=== PATIENT | female | born 1990 | race African-American/Black ===

== ENCOUNTER 2017-11-10 07:12 | Emergency (ER) | payer SELFPAY ==
[2017-11-10 07:40] LABS: Bilirubin Negative (Negative); Blood, Urine Negative (Negative); Clarity CLOUDY (Clear); Glucose, Urine (Dipstick) Negative (Negative); Leukocyte Negative (Negative); Nitrite Negative (Negative); Protein, Urine (Dipstick) Trace mg/dL (Neg-Trace); Specific Gravity, Urine 1.023 (1.002-1.036); Urobilinogen 0.2 mg/dL (0.2-1.0); pH, Urine 7.5 (5.0-9.0)
[2017-11-10 07:44] LABS: Pregnancy Test - Urine (BHCG) Negative (Negative); Pregu Control Background? CLEAR/WHITE (CLR/WHITE); Pregu Control Bar Appear? YES (CONTROL BAR); Specific Gravity 1.023 (1.002-1.036)
[2017-11-10 08:30] LABS: Hemoglobin 12.4 g/dL (12.0-16.0); Mean Corpuscular HGB CONC 33.7 g/dL (32.0-36.0); Mean Corpuscular Hemoglobin 32.4 pg (27.0-31.0); Mean Platelet Volume 6.8 fL (7.4-10.4); Platelet Count 326 thou/uL (130-400); RBC Distribution Width 11.5 % (11.5-14.5); Red Blood Cell (RBC) Count 3.82 mill/uL (4.20-5.40); White Blood Cell (WBC) Count 5.7 thou/uL (4.8-10.8)
[2017-11-10 08:42] LABS: Band 2 % (5-11); Eosinophils 1 % (0-10); Lymphocytes 49 % (21-51); MDiff Complete? YES; Monocytes 1 % (0-10); Neutrophil 36 % (42-75); RBC Morphology Normal; Reactive Lymphocytes 11 % (0-10)
[2017-11-10] MEDS ORDERED: Pantoprazole 40 MG VIAL ONE (08:46)
[2017-11-10] MEDS ORDERED: Ondansetron HCl/PF 4 MG/2 ML Vial ONE (08:46)
[2017-11-10 09:03] LABS: ALT (SGPT) 16 U/L (8-55); AST (SGOT) 30 U/L (5-34); Albumin 3.7 g/dL (3.5-5.0); Alkaline Phosphatase 53 U/L (40-150); Anion Gap 15 mmol/L (10-20); BUN (Urea Nitrogen) 8 mg/dL (7.0-18.7); Bilirubin, Total 0.4 mg/dL (0.2-1.2); Calc. Creatinine Clearance 0 mL/min (70-130); Calcium 8.4 mg/dL (7.8-10.44); Carbon Dioxide 19 mmol/L (22-29); Chloride 106 mmol/L (98-107); Estimated GFR-MDRD Greater than 90; Globulin 3.5 g/dL (2.4-3.5); Glucose 104 mg/dL (70-105); Lipase 18 U/L (8-78); Potassium 4.3 mmol/L (3.5-5.1); Protein, Total 7.2 g/dL (6.0-8.3); Sodium 134 mmol/L (136-145)
== END 2017-11-10 10:30 | disposition home or self-care (01) ==
LOC: ERS 07:12
DX: R11.2 Nausea with vomiting, unspecified (principal)
CPT/HCPCS: 80053; 81003; 81025; 83690; 85025; 96361; 96372; 96374; 96375; C9113; J2405

== ENCOUNTER 2017-12-08 14:29 | Emergency (ER) | payer SELFPAY ==
[2017-12-08] MEDS ORDERED: Oxymetazoline HCl 0.05% ( 15 ML ) ONE (15:25)
[2017-12-08] MEDS ORDERED: Ketorolac Tromethamine 60 MG/2 ML VIAL ONE (15:25)
[2017-12-08 16:09] LABS: Bilirubin Negative (Negative); Blood, Urine Negative (Negative); Clarity CLOUDY (Clear); Glucose, Urine (Dipstick) Negative (Negative); Leukocyte Negative (Negative); Nitrite Negative (Negative); Protein, Urine (Dipstick) Negative (Neg-Trace); Specific Gravity, Urine 1.017 (1.002-1.036); Urobilinogen 0.2 mg/dL (0.2-1.0)
== END 2017-12-08 16:25 | disposition home or self-care (01) ==
LOC: ERS 14:29
DX: J06.9 Acute upper respiratory infection, unspecified (principal)
CPT/HCPCS: 81003; 87804; 96372; J1885

== ENCOUNTER 2017-12-17 20:15 | Emergency (ER) | payer SELFPAY ==
--- NOTE | 2017-12-17 20:58 | RAD ---
RIGHT SHOULDER THREE VIEWS: 12/17/2017 HISTORY: Right shoulder pain. FINDINGS: The coracoclavicular and acromioclavicular distances are within normal limits. There is no evidence of a fracture, dislocation, or other osseous abnormality involving the right shoulder. IMPRESSION: No acute osseous abnormality, right shoulder. POS: [facility]
== END 2017-12-17 21:25 | disposition home or self-care (01) ==
LOC: ERS 20:15
DX: R20.2 Paresthesia of skin (principal)

== ENCOUNTER 2019-01-29 18:22 | Emergency (ER) | payer SELFPAY ==
[2019-01-29] MEDS ORDERED: Ketorolac Tromethamine 30 MG/ML VIAL ONE (20:38)
[2019-01-29] MEDS ORDERED: Acetaminophen 500 MG TAB ONE (20:38)
[2019-01-29] MEDS ORDERED: Metoclopramide HCl 10 MG/2 ML VIAL ONE (20:38)
== END 2019-01-29 21:48 | disposition home or self-care (01) ==
LOC: ERS 18:22
DX: G43.909 Migraine, unspecified, not intractable, without status migrainosus (principal)
CPT/HCPCS: 96365; 96375; J1885; J2765

== ENCOUNTER 2019-02-25 23:30 | Emergency (ER) | payer SELFPAY | END 2019-02-26 | disposition home or self-care (01) | LOC: ERS 23:30 | DX: G56.01 Carpal tunnel syndrome, right upper limb (principal); G43.909 Migraine, unspecified, not intractable, without status migrainosus; Z79.82 Long term (current) use of aspirin ==

== ENCOUNTER 2019-04-09 21:59 | Emergency (ER) | payer SELFPAY | END 2019-04-09 22:36 | disposition home or self-care (01) | LOC: ERS 21:59 | DX: M79.641 Pain in right hand (principal); G43.909 Migraine, unspecified, not intractable, without status migrainosus | CPT/HCPCS: 99283 ==

== ENCOUNTER 2019-11-06 21:48 | Emergency (ER) | payer SELFPAY | END 2019-11-06 22:15 | disposition home or self-care (01) | LOC: ERS 21:48 | DX: M79.641 Pain in right hand (principal); M79.644 Pain in right finger(s); G43.909 Migraine, unspecified, not intractable, without status migrainosus | CPT/HCPCS: 99283 ==

== ENCOUNTER 2019-12-04 18:19 | Emergency (ER) | payer BC ==
[2019-12-04] MEDS ORDERED: Acetaminophen 500 MG TAB ONE (18:46)
[2019-12-04] MEDS ORDERED: Metoclopramide HCl 10 MG/2 ML VIAL ONE (18:48)
[2019-12-04] MEDS ORDERED: diphenhydrAMINE 12.5 MG/5 ML UDCUP ONE ×2 (18:48→18:52)
[2019-12-04] MEDS ORDERED: diphenhydrAMINE 50 MG/ML VIAL ONE (18:54)
== END 2019-12-04 20:17 | disposition home or self-care (01) ==
LOC: ERS 18:19
DX: R51 Headache (principal)
CPT/HCPCS: 96365; 96375; J1200; J2765; Q0163

== ENCOUNTER 2020-04-03 20:10 | Emergency (ER) | payer BC | END 2020-04-03 20:33 | disposition left against medical advice (07) | LOC: ERS 20:10 | DX: Z53.21 Procedure and treatment not carried out due to patient leaving prior to being seen by health care provider (principal) ==

== ENCOUNTER 2023-05-24 11:19 | Emergency (ER) | payer SELFPAY | END 2023-05-24 13:32 | disposition home or self-care (01) | LOC: ERS 11:19 | DX: H61.23 Impacted cerumen, bilateral (principal) | CPT/HCPCS: 99282 ==

== ENCOUNTER 2023-07-07 16:51 | Emergency (ER) | payer BC | END 2023-07-07 18:37 | disposition home or self-care (01) | LOC: ERS 16:51 | DX: M79.642 Pain in left hand (principal); M79.641 Pain in right hand | CPT/HCPCS: 99283 ==

== ENCOUNTER 2023-07-23 00:22 | Emergency (ER) | payer BC, OTHER ==
[2023-07-23] MEDS ORDERED: Ketorolac Tromethamine 30 MG/ML VIAL ONE (01:04)
== END 2023-07-23 01:28 | disposition home or self-care (01) ==
LOC: ERS 00:22
DX: S30.0XXA Contusion of lower back and pelvis, initial encounter (principal); V89.2XXA Person injured in unspecified motor-vehicle accident, traffic, initial encounter
CPT/HCPCS: 72100; 96372; J1885

== ENCOUNTER 2023-09-12 14:38 | Emergency (ER) | payer BC, OTHER ==
[2023-09-12 15:54] LABS: #Monocytes 0.4 thou/uL (0.11-0.59); #Neutrophils 3.6 thou/uL (1.40-6.50); %Basophils 0.3 % (0.0-1.0); %Lymphocytes 36.2 % (21.0-51.0); %Monocytes 6.6 % (0.0-10.0); %Neutrophils 56.6 % (42.0-75.0); Hematocrit 39.3 % (36.0-47.0); Hemoglobin 13.5 g/dL (12.0-16.0); Mean Corpuscular HGB CONC 34.4 g/dL (32.0-36.0); Mean Corpuscular Hemoglobin 31.9 pg (27.0-31.0); Mean Corpuscular Volume 92.9 fl (78.0-98.0); Mean Platelet Volume 8.9 fL (7.4-10.4); Platelet Count 438 10x3/uL (130-400); RBC Distribution Width 11.9 % (11.5-14.5); Red Blood Cell (RBC) Count 4.23 mill/uL (4.20-5.40); White Blood Cell (WBC) Count 6.4 10x3/uL (4.8-10.8)
[2023-09-12] MEDS ORDERED: Ondansetron PF 4 MG/2 ML Vial ONE (16:02)
[2023-09-12] MEDS ORDERED: Morphine 4 MG/ML VIAL ONE (16:02)
[2023-09-12 16:08] LABS: BHCG - Serum Negative (NEGATIVE); Pregs Control Background? CLEAR/WHITE (CLR/WHITE); Pregs Control Bar Appear? YES (CONTROL BAR)
[2023-09-12 16:16] LABS: Troponin I Less than 0.010 ng/mL (< 0.028)
[2023-09-12 16:17] LABS: ALT (SGPT) 23 U/L (8-55); AST (SGOT) 16 U/L (5-34); Albumin 4.4 g/dL (3.5-5.0); Alkaline Phosphatase 72 U/L (40-110); Anion Gap 12 mmol/L (10-20); BUN (Urea Nitrogen) 7 mg/dL (7.0-18.7); Bilirubin, Total 0.2 mg/dL (0.2-1.2); Calc. Creatinine Clearance 0 mL/min (70-130); Calcium 9.5 mg/dL (7.8-10.44); Carbon Dioxide 24 mmol/L (22-29); Chloride 105 mmol/L (98-107); Estimated GFR 102; Globulin 3.3 g/dL (2.4-3.5); Glucose 103 mg/dL (70-105); Potassium 3.6 mmol/L (3.5-5.1); Protein, Total 7.7 g/dL (6.0-8.3); Sodium 137 mmol/L (136-145)
== END 2023-09-12 17:22 | disposition home or self-care (01) ==
LOC: ERS 14:38
DX: S06.0XAA Concussion with loss of consciousness status unknown, initial encounter (principal); M54.6 Pain in thoracic spine; M54.50 Low back pain, unspecified; V43.52XA Car driver injured in collision with other type car in traffic accident, initial encounter
CPT/HCPCS: 36415; 70450; 71045; 71260; 72125; 74177; 80053; 83690; 84484; 84703; 85025; 93005; 96374; 96375; J2270; J2405